=== PATIENT | female | born 1945 | race African-American/Black ===

== ENCOUNTER 2021-04-29 21:26 | Observation (INO) ==
[2021-04-29] MEDS ORDERED: ALUM/MAG/SIMETH/LIDO VISC 1:1 30 ML BOTTLE PO STA (23:07)
[2021-04-29] MEDS ORDERED: NITROGLYCERIN 2% OINT 1 INCH/GM PACK TOP STA (23:07)
[2021-04-29] MEDS ORDERED: ASPIRIN 325 MG TABLET PO STA (23:07)
[2021-04-29] MEDS ORDERED: ONDANSETRON 4 MG/2 ML VIAL IV STA (23:07)
[2021-04-29] MEDS ORDERED: MORPHINE 2 MG/1 ML SYRINGE IV STA (23:07)
[2021-04-29 23:18] LABS: Basophils # 0.1 10*3/uL (0.0-0.2); Basophils % 0.6 % (0.0-0.8); Eosinophils # 0.2 10*3/uL (0.0-0.87); Eosinophils % 2.7 % (0.00-10.9); Hematocrit 30.2 VOL% (35.7-47.0); Hemoglobin 9.7 GM/DL (12.0-16.0); Immature Granulocytes % 0.2 %; Immature Granulocytes Absolute 0.02 #; Lymphocytes # 1.2 10*3/uL (1.4-4.0); Lymphocytes % 15.2 % (21.3-54.2); Mean Corpuscular HGB Conc 32.1 GM/DL (32-36); Mean Corpuscular Volume 96.2 FL (87-102); Mean Platelet Volume 10.3 FL (9.6-12.0); Neutrophils % 70.3 % (38.7-73.9); Platelet Count 282 T/CUMM (130-400); Red Blood Count 3.14 MC/CUMM (3.8-5.5); Red Cell Distribution Width 15.1 % (9.3-17.3); White Blood Count 8.2 T/CUMM (4-12)
[2021-04-29 23:28] LABS: Albumin 3.2 G/DL (3.4-5.0); Bilirubin,Total 1.8 MG/DL (0.20-1.00); Calcium 9.6 MG/DL (8.5-10.1); Osmolality,Calculated 279.5 MOS/KG (273-304); Potassium 3.3 MMOL/L (3.5-5.1); Total Protein 7.9 G/DL (6.4-8.2)
[2021-04-29] MEDS ORDERED: POTASSIUM CHLORIDE 20 MEQ TABLET PO STA (23:51)
[2021-04-30] MEDS ORDERED: DEXTROSE 50% 25 GM/50 ML SYRINGE IV PRN (01:09)
[2021-04-30] MEDS ORDERED: GLUCAGON 1 MG VIAL IM PRN (01:09)
[2021-04-30] MEDS ORDERED: MORPHINE 2 MG/1 ML SYRINGE IV PRN (01:09)
[2021-04-30] MEDS ORDERED: ONDANSETRON 4 MG/2 ML VIAL IV PRN (01:09)
[2021-04-30] MEDS ORDERED: ENOXAPARIN 60 MG/0.6 ML SYRINGE ONE (02:59)
[2021-04-30] MEDS: ENOXAPARIN 40 MG/0.4 ML SYRINGE SUBCUT SCH (03:04)
[2021-04-30] MEDS ORDERED: PNEUMOCOCCAL VACCINE (13 VALENT) 0.5 ML SYRINGE IM ONE (04:09)
[2021-04-30 06:38] LABS: Basophils % 0.6 % (0.0-0.8); Eosinophils # 0.1 10*3/uL (0.0-0.87); Eosinophils % 1.2 % (0.00-10.9); Hemoglobin 8.6 GM/DL (12.0-16.0); Immature Granulocytes % 0.4 %; Immature Granulocytes Absolute 0.03 #; Lymphocytes % 13.7 % (21.3-54.2); Mean Corpuscular HGB Conc 31.9 GM/DL (32-36); Mean Corpuscular Volume 96.4 FL (87-102); Mean Platelet Volume 10.3 FL (9.6-12.0); Monocytes % 10.5 % (1.7-12.7); Neutrophils % 73.6 % (38.7-73.9); Platelet Count 258 T/CUMM (130-400); Red Cell Distribution Width 14.9 % (9.3-17.3); White Blood Count 7.2 T/CUMM (4-12)
[2021-04-30 06:57] LABS: Calcium 8.7 MG/DL (8.5-10.1); Osmolality,Calculated 276.7 MOS/KG (273-304); Potassium 3.4 MMOL/L (3.5-5.1); Risk Ratio 6.31
[2021-04-30] MEDS ORDERED: cycloSPORINE OPH EMUL 1 VIAL BOTH EYES SCH (08:00)
[2021-04-30] MEDS: PANTOPRAZOLE 40 MG TABLET PO SCH (08:37)
[2021-04-30] MEDS: PREGABALIN 100 MG CAPSULE PO SCH ×2 (08:37→20:50)
[2021-04-30] MEDS: hydroCHLOROthiazide 25 MG TABLET PO SCH (08:37)
[2021-04-30] MEDS: amLODIPine 5 MG TABLET PO SCH (08:37)
[2021-04-30] MEDS: DOCUSATE SODIUM 100 MG CAPSULE PO SCH ×2 (08:37→20:50)
[2021-04-30] MEDS: ENALAPRIL 10 MG TABLET PO SCH (08:47)
[2021-04-30] MEDS ORDERED: SIMVASTATIN 10 MG TABLET PO SCH (19:00)
[2021-05-01 01:16] LABS: Bilirubin,Urine Negative (Negative); Blood, Urine Negative (Negative); Glucose,Urine (UA) Negative (Negative); Ketones,Urine Negative (Negative); Mucus,Urine Occasional /LPF (Occasional); Nitrite,Urine Negative (Negative); Protein,Urine Negative; RBC,Urine 1 /HPF (0-4); Squamous Epithelial Cell,Urine Occasional /HPF (0-10); Urine Appearance CLEAR (Clear); Urine Color Yellow (Yellow); Urine Specific Gravity 1.013 (1.001-1.035)
[2021-05-01] MEDS: ENOXAPARIN 40 MG/0.4 ML SYRINGE SUBCUT SCH (08:30)
[2021-05-01] MEDS: PREGABALIN 100 MG CAPSULE PO SCH (08:31)
[2021-05-01] MEDS: hydroCHLOROthiazide 25 MG TABLET PO SCH (08:32)
[2021-05-01] MEDS: PANTOPRAZOLE 40 MG TABLET PO SCH (08:32)
[2021-05-01] MEDS: ENALAPRIL 10 MG TABLET PO SCH (08:32)
[2021-05-01] MEDS: DOCUSATE SODIUM 100 MG CAPSULE PO SCH (08:32)
[2021-05-01] MEDS: amLODIPine 5 MG TABLET PO SCH (08:32)
[2021-05-01 12:06] VITALS: BP 109/72
[2021-05-03] MEDS ORDERED: ERGOCALCIFEROL 50,000 UNIT CAPSULE PO SCH (09:00)
== END 2021-05-01 14:50 | disposition home or self-care (01) ==
LOC: N.EDINP 21:26 → N.ED 21:26 → N.EDINP 04-30 03:53 → N.2E 04-30 04:19
PROVIDERS: ADMIT Internal Medicine; ATTEND Internal Medicine

== ENCOUNTER 2021-05-26 22:46 | Inpatient (IN) ==
[2021-05-27 00:28] LABS: Bacteria,Urine Occasional /HPF (Few); Bilirubin,Urine Negative (Negative); Blood, Urine Small mg/dL (Negative); Glucose,Urine (UA) Negative (Negative); Ketones,Urine Negative (Negative); Mucus,Urine Occasional /LPF (Occasional); Nitrite,Urine Negative (Negative); Protein,Urine 100 MG/DL; RBC,Urine 2 /HPF (0-4); Squamous Epithelial Cell,Urine Occasional /HPF (0-10); Urine Appearance CLEAR (Clear); Urine Color Amber (Yellow); Urine Specific Gravity 1.018 (1.001-1.035)
[2021-05-27 00:38] LABS: Lactic Acid 1.1 MMOL/L (0.4-2.0)
[2021-05-27 00:40] LABS: Basophils # 0.1 10*3/uL (0.0-0.2); Basophils % 0.5 % (0.0-0.8); Eosinophils # 0.1 10*3/uL (0.0-0.87); Eosinophils % 0.5 % (0.00-10.9); Hematocrit 22.9 VOL% (35.7-47.0); Hemoglobin 7.6 GM/DL (12.0-16.0); Lymphocytes # 1.2 10*3/uL (1.4-4.0); Lymphocytes % 12.3 % (21.3-54.2); Mean Corpuscular HGB Conc 33.2 GM/DL (32-36); Mean Corpuscular Volume 93.5 FL (87-102); Mean Platelet Volume 10.2 FL (9.6-12.0); Monocytes % 11.7 % (1.7-12.7); Platelet Count 210 T/CUMM (130-400); Red Blood Count 2.45 MC/CUMM (3.8-5.5); Red Cell Distribution Width 15.2 % (9.3-17.3); White Blood Count 9.9 T/CUMM (4-12)
[2021-05-27 00:57] LABS: Albumin 1.7 G/DL (3.4-5.0); Osmolality,Calculated 282.5 MOS/KG (273-304); Potassium 3.5 MMOL/L (3.5-5.1); Total Protein 6.2 G/DL (6.4-8.2)
[2021-05-27] MEDS ORDERED: SODIUM CHLORIDE 0.9% 1,000 ML IV STA (01:10)
[2021-05-27] MEDS ORDERED: ASPIRIN EC 325 MG TABLET PO STA (01:10)
[2021-05-27] MEDS ORDERED: NITROGLYCERIN SL 0.4 MG TABLET SL STA (01:10)
[2021-05-27] MEDS ORDERED: PIPERACILLIN/TAZOBACTAM 3,375 MG in SODIUM CHLORIDE 0.9% 100 ML IV STA (01:12)
[2021-05-27] MEDS ORDERED: MORPHINE 2 MG/1 ML SYRINGE IV STA (01:57)
[2021-05-27] MEDS ORDERED: ONDANSETRON 4 MG/2 ML VIAL IV ONE (01:58)
[2021-05-27] MEDS ORDERED: GLUCAGON 1 MG VIAL IM PRN (03:13)
[2021-05-27] MEDS ORDERED: SODIUM CHLORIDE 0.9% 1,000 ML IV PRN ×2 (03:13→14:18)
[2021-05-27] MEDS ORDERED: ONDANSETRON 4 MG/2 ML VIAL IV PRN (03:20)
[2021-05-27] MEDS ORDERED: POTASSIUM CHLORIDE RIDER 10 MEQ/100 ML PREMIX IV PRN (03:20)
[2021-05-27] MEDS ORDERED: MAGNESIUM SULF RIDER 2 GM/50 ML PREMIX IV PRN (03:20)
[2021-05-27] MEDS ORDERED: MAGNESIUM SULF RIDER 4 GM/100 ML PREMIX IV PRN (03:20)
[2021-05-27] MEDS ORDERED: DEXTROSE 50% 25 GM/50 ML SYRINGE IV PRN (03:33)
[2021-05-27] MEDS: LACTATED RINGERS 1,000 ML IV SCH ×2 (05:18→12:48)
[2021-05-27 05:29] LABS: Basophils # 0.1 10*3/uL (0.0-0.2); Basophils % 0.5 % (0.0-0.8); Eosinophils # 0.1 10*3/uL (0.0-0.87); Eosinophils % 0.6 % (0.00-10.9); Hematocrit 22.1 VOL% (35.7-47.0); Hemoglobin 7.2 GM/DL (12.0-16.0); Immature Granulocytes % 1.2 %; Immature Granulocytes Absolute 0.12 #; Lymphocytes # 0.9 10*3/uL (1.4-4.0); Lymphocytes % 9.2 % (21.3-54.2); Mean Corpuscular HGB Conc 32.6 GM/DL (32-36); Mean Corpuscular Volume 93.6 FL (87-102); Mean Platelet Volume 10.5 FL (9.6-12.0); Monocytes % 10.8 % (1.7-12.7); Neutrophils % 77.7 % (38.7-73.9); Platelet Count 194 T/CUMM (130-400); Red Blood Count 2.36 MC/CUMM (3.8-5.5); Red Cell Distribution Width 15.1 % (9.3-17.3); White Blood Count 9.7 T/CUMM (4-12)
[2021-05-27 05:38] LABS: INR 1.1; PT Patient Result 12.5 SECS (10.5-12.0); Partial Thromboplastin Time 25.9 SECS (23.8-32.1)
[2021-05-27 06:04] LABS: Folate 6.56 NG/ML (5.38-24.0); Vitamin B12 1515 PG/ML (211-911)
[2021-05-27 06:47] LABS: % Iron Saturation 17.4 % (18-50); Ferritin 562.9 ng/mL (8-252); Thyroid Stimulating Hormone 1.68 uIU/ml (0.358-3.74)
[2021-05-27] MEDS ORDERED: PANTOPRAZOLE 40 MG TABLET PO SCH (09:00)
[2021-05-27 11:14] LABS: Sedimentation Rate-Westergren 126 MM/HR (0-30)
[2021-05-27] MEDS: DOCUSATE SODIUM 100 MG CAPSULE PO SCH ×2 (12:20→21:12)
[2021-05-27] MEDS: ACETAMINOPHEN 325 MG TABLET PO PRN ×2 (12:20→21:12)
[2021-05-27] MEDS: PIPERACILLIN/TAZOBACTAM 3,375 MG in SODIUM CHLORIDE 0.9% 100 ML IV SCH (12:45)
[2021-05-27] MEDS: PANTOPRAZOLE 40 MG TABLET PO SCH (21:12)
[2021-05-28] MEDS: ACETAMINOPHEN 325 MG TABLET PO PRN ×2 (01:06→12:27)
[2021-05-28] MEDS ORDERED: DEXTROSE 10% 250 ML BAG IV PRN (01:14)
[2021-05-28] MEDS: LACTATED RINGERS 1,000 ML IV SCH ×2 (01:51→06:17)
[2021-05-28] MEDS: PIPERACILLIN/TAZOBACTAM 3,375 MG in SODIUM CHLORIDE 0.9% 100 ML IV SCH ×2 (01:51→06:17)
[2021-05-28 05:35] LABS: Basophils % 0.4 % (0.0-0.8); Eosinophils # 0.2 10*3/uL (0.0-0.87); Eosinophils % 1.6 % (0.00-10.9); Hematocrit 29.1 VOL% (35.7-47.0); Hemoglobin 9.4 GM/DL (12.0-16.0); Immature Granulocytes % 0.8 %; Immature Granulocytes Absolute 0.08 #; Lymphocytes # 0.9 10*3/uL (1.4-4.0); Lymphocytes % 8.4 % (21.3-54.2); Mean Corpuscular HGB Conc 32.3 GM/DL (32-36); Mean Corpuscular Volume 92.1 FL (87-102); Mean Platelet Volume 10.5 FL (9.6-12.0); Monocytes % 8.4 % (1.7-12.7); Neutrophils % 80.4 % (38.7-73.9); Platelet Count 196 T/CUMM (130-400); Red Blood Count 3.16 MC/CUMM (3.8-5.5); Red Cell Distribution Width 15.5 % (9.3-17.3); White Blood Count 10.6 T/CUMM (4-12)
[2021-05-28 05:54] LABS: Calcium 8.4 MG/DL (8.5-10.1); Osmolality,Calculated 283.4 MOS/KG (273-304); Potassium 3.5 MMOL/L (3.5-5.1)
[2021-05-28] MEDS: PANTOPRAZOLE 40 MG TABLET PO SCH ×2 (09:06→20:49)
[2021-05-28] MEDS: POTASSIUM CHLORIDE 20 MEQ TABLET PO PRN ×2 (09:06→12:26)
[2021-05-28] MEDS: DOCUSATE SODIUM 100 MG CAPSULE PO SCH ×2 (09:06→20:49)
[2021-05-28 09:14] LABS: Hemoglobin A1 (Alkaline) 97.2 % (96.5-98.5); Hemoglobin A2 (Alkaline) 2.8 % (1.5-3.5)
[2021-05-28] MEDS: PREGABALIN 100 MG CAPSULE PO SCH (16:23)
[2021-05-28] MEDS: traMADol 50 MG TABLET PO PRN (16:23)
[2021-05-29] MEDS: traMADol 50 MG TABLET PO PRN ×2 (00:39→11:19)
[2021-05-29] MEDS: ACETAMINOPHEN 325 MG TABLET PO PRN (04:57)
[2021-05-29 06:05] LABS: Basophils % 0.4 % (0.0-0.8); Eosinophils # 0.2 10*3/uL (0.0-0.87); Eosinophils % 1.5 % (0.00-10.9); Immature Granulocytes % 0.6 %; Immature Granulocytes Absolute 0.07 #; Lymphocytes # 0.6 10*3/uL (1.4-4.0); Lymphocytes % 5.5 % (21.3-54.2); Mean Corpuscular HGB Conc 33.3 GM/DL (32-36); Mean Corpuscular Volume 91.7 FL (87-102); Mean Platelet Volume 10.3 FL (9.6-12.0); Monocytes % 7.3 % (1.7-12.7); Neutrophils % 84.7 % (38.7-73.9); Platelet Count 213 T/CUMM (130-400); Red Blood Count 3.27 MC/CUMM (3.8-5.5); Red Cell Distribution Width 15.8 % (9.3-17.3)
[2021-05-29 06:14] LABS: Calcium 8.2 MG/DL (8.5-10.1); Osmolality,Calculated 281.3 MOS/KG (273-304); Potassium 3.7 MMOL/L (3.5-5.1)
[2021-05-29] MEDS: PANTOPRAZOLE 40 MG TABLET PO SCH (09:02)
[2021-05-29] MEDS: PREGABALIN 100 MG CAPSULE PO SCH (09:02)
[2021-05-29] MEDS: DOCUSATE SODIUM 100 MG CAPSULE PO SCH (09:02)
[2021-05-29] MEDS ORDERED: HEPARIN LOCK FLUSH 500 UNIT/5 ML SYRINGE IV ONE (11:30)
[2021-05-29 12:26] VITALS: BP 131/95
== END 2021-05-29 13:29 | disposition home health service (06) | DRG 812 ==
LOC: EDBD → EDUNIT# → N.ED 22:46 → N.EDINP 05-27 03:15 → N.5E 05-27 23:48
PROVIDERS: ADMIT Internal Medicine; ATTEND Internal Medicine

== ENCOUNTER 2021-06-10 14:25 | Inpatient (IN) ==
[2021-06-10] MEDS ORDERED: HYDROmorphone 2 MG/1 ML VIAL IV STA (16:23)
[2021-06-10] MEDS ORDERED: ONDANSETRON 4 MG/2 ML VIAL IV STA (16:23)
[2021-06-10 16:44] LABS: Basophils % 0.3 % (0.0-0.8); Eosinophils % 0.2 % (0.00-10.9); Hematocrit 25.2 VOL% (35.7-47.0); Hemoglobin 8.3 GM/DL (12.0-16.0); Immature Granulocytes % 0.7 %; Immature Granulocytes Absolute 0.08 #; Lymphocytes # 0.7 10*3/uL (1.4-4.0); Lymphocytes % 6.5 % (21.3-54.2); Mean Corpuscular HGB Conc 32.9 GM/DL (32-36); Monocytes % 9.3 % (1.7-12.7); Platelet Count 136 T/CUMM (130-400); Red Blood Count 2.77 MC/CUMM (3.8-5.5); Red Cell Distribution Width 17.5 % (9.3-17.3); White Blood Count 10.7 T/CUMM (4-12)
[2021-06-10 16:52] LABS: INR 1.2; PT Patient Result 13.6 SECS (10.5-12.0); Partial Thromboplastin Time 32.2 SECS (23.8-32.1)
[2021-06-10 17:08] LABS: Albumin 1.6 G/DL (3.4-5.0); Bilirubin,Total 4.7 MG/DL (0.20-1.00); Calcium 7.9 MG/DL (8.5-10.1); Potassium 3.5 MMOL/L (3.5-5.1); Total Protein 5.6 G/DL (6.4-8.2)
[2021-06-10] MEDS ORDERED: ONDANSETRON 4 MG/2 ML VIAL IV PRN (18:50)
[2021-06-10] MEDS ORDERED: LACTULOSE 20 GM/30 ML UDCUP PO PRN (18:50)
[2021-06-10] MEDS ORDERED: GLUCAGON 1 MG VIAL IM PRN (18:50)
[2021-06-10] MEDS ORDERED: cycloSPORINE OPH EMUL 1 VIAL BOTH EYES SCH (19:00)
[2021-06-10] MEDS ORDERED: DEXTROSE 10% 250 ML BAG IV PRN (19:08)
[2021-06-10 20:02] LABS: % Iron Saturation 17.6 % (18-50)
[2021-06-10] MEDS: PIPERACILLIN/TAZOBACTAM 3,375 MG in SODIUM CHLORIDE 0.9% 100 ML IV SCH (20:39)
[2021-06-10 21:02] LABS: Folate 4.55 NG/ML (5.38-24.0); Vitamin B12 > 2000 PG/ML (211-911)
[2021-06-10] MEDS: DOCUSATE SODIUM 100 MG CAPSULE PO SCH (21:54)
[2021-06-10 23:10] LABS: Blood, Urine Large mg/dL (Negative); Glucose,Urine (UA) Negative (Negative); Ketones,Urine 5 mg/dL (Negative); Mucus,Urine Occasional /LPF (Occasional); Nitrite,Urine Negative (Negative); Protein,Urine 100 MG/DL; RBC,Urine 44 /HPF (0-4); Squamous Epithelial Cell,Urine Occasional /HPF (0-10); Urine Appearance CLOUDY (Clear); Urine Color Amber (Yellow); Urine Specific Gravity 1.017 (1.001-1.035)
[2021-06-10 23:12] LABS: Bilirubin,Urine Small mg/dL (Negative)
[2021-06-10 23:32] LABS: Barbiturates Screen,Urine Negative (Negative); Benzodiazepines Screen,Urine Negative (Negative); Cannabinoid Screen,Urine Negative (Negative); Opiate Screen,Urine Positive (Negative); Phencyclidine Screen,Urine Negative (Negative)
[2021-06-11] MEDS: DEXTROSE 5% NACL 0.45% 1,000 ML IV SCH ×2 (00:09→20:12)
[2021-06-11] MEDS: MORPHINE 2 MG/1 ML SYRINGE IV PRN ×2 (04:36→14:05)
[2021-06-11 04:38] LABS: Basophils % 0.3 % (0.0-0.8); Eosinophils % 0.2 % (0.00-10.9); Hematocrit 27.3 VOL% (35.7-47.0); Immature Granulocytes % 1.1 %; Immature Granulocytes Absolute 0.14 #; Lymphocytes # 1.1 10*3/uL (1.4-4.0); Lymphocytes % 8.6 % (21.3-54.2); Mean Corpuscular Volume 90.7 FL (87-102); Monocytes % 10.4 % (1.7-12.7); NRBC # 0.03 10*3/uL; Neutrophils % 79.4 % (38.7-73.9); Platelet Count 155 T/CUMM (130-400); Red Blood Count 3.01 MC/CUMM (3.8-5.5); Red Cell Distribution Width 17.8 % (9.3-17.3); White Blood Count 13.3 T/CUMM (4-12)
[2021-06-11 04:56] LABS: Alanine Aminotransferase 38 U/L (13-56); Albumin 1.8 G/DL (3.4-5.0); Alkaline Phosphatase 225 U/L (45-117); Aspartate Amino Transferase 130 U/L (0-37); Blood Urea Nitrogen 24 MG/DL (7-18); Calcium 8.6 MG/DL (8.5-10.1); Carbon Dioxide 22 MMOL/L (21-32); Estimated Glom Filtration Rate 49 ML/MIN; Glucose 127 MG/DL (74-106); HDL Cholesterol < 10 MG/DL (40-60); Osmolality,Calculated 275.1 MOS/KG (273-304); Potassium 3.4 MMOL/L (3.5-5.1); Sodium 135 MMOL/L (136-145); Total Protein 6.3 G/DL (6.4-8.2); Triglycerides 232 MG/DL (2-150); VLDL Cholesterol 46.4 MG/DL
[2021-06-11 05:01] LABS: Anisocytosis 1+; Band Neutrophils 3 % (0-10); Eosinophils 1 % (0-10); Hypochromia 1+; Lymphocytes 7 % (20-55); Metamyelocytes 1 %; Microcytosis 1+; Ovalocytes Slight; Segmented Neutrophils 81 % (50-85); Target Cells Slight; Total Cells Counted 100
[2021-06-11 05:02] LABS: Platelet Estimate Adequate
[2021-06-11] MEDS: OLANZapine 10 MG VIAL IM ONE ×2 (05:07→06:38)
[2021-06-11] MEDS: PIPERACILLIN/TAZOBACTAM 3,375 MG in SODIUM CHLORIDE 0.9% 100 ML IV SCH ×3 (05:07→22:26)
[2021-06-11] MEDS ORDERED: SODIUM CHLORIDE 0.9% 1,800 ML IV ONE (05:47)
[2021-06-11 06:36] LABS: ABG Base Excess 1.1 MMOL/L (-2.5-2.5); ABG HCO3 25.4 MMOL/L (20-26); ABG Oxygen Saturation 94.5 % (95-100); ABG PCO2 33.5 MM HG (35-48); ABG PH 7.473 (7.35-7.45); ABG PO2 72.5 MM HG (80-95); ABG TCO2 22.8 MMOL/L (23-27)
[2021-06-11] MEDS ORDERED: POTASSIUM CHLORIDE 20 MEQ TABLET PO ONE (08:29)
[2021-06-11] MEDS: LACTATED RINGERS 1,000 ML IV SCH ×2 (08:30→17:31)
[2021-06-11] MEDS ORDERED: VANCOMYCIN INJ 1,750 MG in SODIUM CHLORIDE 0.9% 500 ML IV ONE (09:00)
[2021-06-11] MEDS ORDERED: QUINAPRIL 10 MG PO SCH (09:00)
[2021-06-11] MEDS: hydroCHLOROthiazide 25 MG TABLET PO SCH (11:30)
[2021-06-11] MEDS: DOCUSATE SODIUM 100 MG CAPSULE PO SCH ×2 (11:30→22:25)
[2021-06-11] MEDS: PANTOPRAZOLE 40 MG VIAL IV SCH (11:30)
[2021-06-11] MEDS ORDERED: KETOROLAC 30 MG/1 ML VIAL ONE (11:48)
[2021-06-11] MEDS ORDERED: KETOROLAC 15 MG/1 ML VIAL IV ONE (12:05)
[2021-06-11] MEDS: PREGABALIN 50 MG CAPSULE PO SCH ×2 (14:15→22:25)
[2021-06-11] MEDS ORDERED: traMADol 50 MG TABLET PO PRN (14:41)
[2021-06-11] MEDS ORDERED: MORPHINE 2 MG/1 ML SYRINGE IV STA (14:57)
[2021-06-12] MEDS: PIPERACILLIN/TAZOBACTAM 3,375 MG in SODIUM CHLORIDE 0.9% 100 ML IV SCH (05:15)
[2021-06-12 05:28] LABS: Basophils % 0.3 % (0.0-0.8); Eosinophils # 0.1 10*3/uL (0.0-0.87); Hematocrit 28.5 VOL% (35.7-47.0); Hemoglobin 9.5 GM/DL (12.0-16.0); Immature Granulocytes % 1.2 %; Immature Granulocytes Absolute 0.11 #; Lymphocytes # 0.9 10*3/uL (1.4-4.0); Lymphocytes % 9.4 % (21.3-54.2); Mean Corpuscular HGB Conc 33.3 GM/DL (32-36); Mean Corpuscular Volume 89.9 FL (87-102); Mean Platelet Volume 11.4 FL (9.6-12.0); Monocytes % 11.7 % (1.7-12.7); NRBC # 0.02 10*3/uL; Neutrophils % 76.4 % (38.7-73.9); Platelet Count 109 T/CUMM (130-400); Red Blood Count 3.17 MC/CUMM (3.8-5.5); Red Cell Distribution Width 17.8 % (9.3-17.3); White Blood Count 9.3 T/CUMM (4-12)
[2021-06-12 05:46] LABS: Band Neutrophils 1 % (0-10); Hypochromia 1+; Lymphocytes 13 % (20-55); Segmented Neutrophils 81 % (50-85); Target Cells Slight; Total Cells Counted 100
[2021-06-12 05:47] LABS: Microcytosis 1+; Ovalocytes Slight; Platelet Estimate Adequate
[2021-06-12 05:56] LABS: Albumin 1.3 G/DL (3.4-5.0); Bilirubin,Total 3.8 MG/DL (0.20-1.00); Calcium 7.8 MG/DL (8.5-10.1); Osmolality,Calculated 277.7 MOS/KG (273-304); Total Protein 5.4 G/DL (6.4-8.2)
[2021-06-12] MEDS: LACTATED RINGERS 1,000 ML IV SCH ×2 (08:43→15:26)
[2021-06-12] MEDS: DOCUSATE SODIUM 100 MG CAPSULE PO SCH ×2 (09:24→23:46)
[2021-06-12] MEDS: hydroCHLOROthiazide 25 MG TABLET PO SCH (09:24)
[2021-06-12] MEDS: PREGABALIN 50 MG CAPSULE PO SCH (09:25)
[2021-06-12] MEDS: PANTOPRAZOLE 40 MG VIAL IV SCH (09:29)
[2021-06-12] MEDS: MORPHINE 2 MG/1 ML SYRINGE IV PRN (11:31)
[2021-06-12] MEDS: cefTRIAXone 1,000 MG in SODIUM CHLORIDE 0.9% 100 ML IV SCH (13:24)
[2021-06-12] MEDS: MORPHINE ER 15 MG TABLET PO SCH (15:38)
[2021-06-12] MEDS: DEXTROSE 5% NACL 0.45% 1,000 ML IV SCH (15:53)
[2021-06-12] MEDS: HYDROCORTISONE 100 MG VIAL IV SCH (16:49)
[2021-06-12] MEDS: SODIUM BICARB INJ 100 MEQ in DEXTROSE 5% 1,000 ML IV SCH (17:50)
[2021-06-12] MEDS: PREGABALIN 100 MG CAPSULE PO SCH (23:46)
[2021-06-12] MEDS: cycloSPORINE OPH EMUL 1 VIAL BOTH EYES SCH (23:46)
[2021-06-13] MEDS: HYDROCORTISONE 100 MG VIAL IV SCH (02:53)
[2021-06-13] MEDS: MORPHINE ER 15 MG TABLET PO SCH ×2 (02:53→16:16)
[2021-06-13] MEDS: DOCUSATE SODIUM 100 MG CAPSULE PO SCH ×4 (02:56→20:47)
[2021-06-13 05:13] LABS: Basophils % 0.3 % (0.0-0.8); Hematocrit 28.4 VOL% (35.7-47.0); Hemoglobin 9.4 GM/DL (12.0-16.0); Immature Granulocytes % 1.6 %; Immature Granulocytes Absolute 0.11 #; Lymphocytes # 0.5 10*3/uL (1.4-4.0); Lymphocytes % 6.7 % (21.3-54.2); Mean Corpuscular HGB Conc 33.1 GM/DL (32-36); Mean Corpuscular Volume 90.4 FL (87-102); Mean Platelet Volume 10.8 FL (9.6-12.0); Monocytes % 7.7 % (1.7-12.7); NRBC # 0.04 10*3/uL; Neutrophils % 83.7 % (38.7-73.9); Platelet Count 115 T/CUMM (130-400); Red Blood Count 3.14 MC/CUMM (3.8-5.5); Red Cell Distribution Width 18.2 % (9.3-17.3); White Blood Count 6.8 T/CUMM (4-12)
[2021-06-13 05:38] LABS: Calcium 8.4 MG/DL (8.5-10.1); Osmolality,Calculated 280.8 MOS/KG (273-304); Potassium 3.5 MMOL/L (3.5-5.1)
[2021-06-13 05:41] LABS: Hypochromia 1+; Lymphocytes 5 % (20-55); Microcytosis 1+; Segmented Neutrophils 84 % (50-85); Total Cells Counted 100
[2021-06-13] MEDS ORDERED: HALOPERIDOL 5 MG/ML AMP IM ONE (08:19)
[2021-06-13 08:43] LABS: Albumin 1.6 G/DL (3.4-5.0); Bilirubin,Direct 2.66 MG/DL (0.0-0.20); Bilirubin,Indirect 0.7 MG/DL (0.0-1.0); Bilirubin,Total 3.4 MG/DL (0.20-1.00); Total Protein 6.1 G/DL (6.4-8.2)
[2021-06-13] MEDS ORDERED: predniSONE 10 MG TABLET PO SCH (09:00)
[2021-06-13] MEDS: PANTOPRAZOLE 40 MG VIAL IV SCH (09:13)
[2021-06-13] MEDS: SODIUM BICARB INJ 100 MEQ in DEXTROSE 5% 1,000 ML IV SCH ×3 (09:40→16:16)
[2021-06-13] MEDS: cycloSPORINE OPH EMUL 1 VIAL BOTH EYES SCH ×2 (10:03→20:47)
[2021-06-13] MEDS: CYANOCOBALAMIN 500 MCG TABLET PO SCH (10:09)
[2021-06-13] MEDS: LACTULOSE 20 GM/30 ML UDCUP PO SCH (10:09)
[2021-06-13] MEDS: PREGABALIN 100 MG CAPSULE PO SCH ×2 (10:09→20:47)
[2021-06-13] MEDS: cefTRIAXone 1,000 MG in SODIUM CHLORIDE 0.9% 100 ML IV SCH (12:17)
[2021-06-13] MEDS ORDERED: HYDROCORTISONE 100 MG VIAL IV SCH (15:00)
[2021-06-14] MEDS: MORPHINE ER 15 MG TABLET PO SCH ×2 (03:21→14:51)
[2021-06-14 04:42] LABS: Basophils % 0.1 % (0.0-0.8); Hematocrit 25.8 VOL% (35.7-47.0); Hemoglobin 8.5 GM/DL (12.0-16.0); Immature Granulocytes % 0.9 %; Immature Granulocytes Absolute 0.06 #; Lymphocytes # 0.8 10*3/uL (1.4-4.0); Lymphocytes % 10.9 % (21.3-54.2); Mean Corpuscular HGB Conc 32.9 GM/DL (32-36); Mean Corpuscular Volume 90.5 FL (87-102); Mean Platelet Volume 11.5 FL (9.6-12.0); Monocytes % 10.5 % (1.7-12.7); NRBC # 0.07 10*3/uL; Neutrophils % 77.6 % (38.7-73.9); Platelet Count 109 T/CUMM (130-400); Red Blood Count 2.85 MC/CUMM (3.8-5.5); Red Cell Distribution Width 17.7 % (9.3-17.3)
[2021-06-14 05:05] LABS: Calcium 7.9 MG/DL (8.5-10.1); Osmolality,Calculated 280.8 MOS/KG (273-304); Potassium 3.5 MMOL/L (3.5-5.1)
[2021-06-14 05:11] LABS: Albumin 1.5 G/DL (3.4-5.0); Bilirubin,Direct 2.1 MG/DL (0.0-0.20); Bilirubin,Indirect 1.6 MG/DL (0.0-1.0); Bilirubin,Total 3.7 MG/DL (0.20-1.00); Total Protein 5.7 G/DL (6.4-8.2)
[2021-06-14] MEDS: SODIUM BICARB INJ 100 MEQ in DEXTROSE 5% 1,000 ML IV SCH ×3 (08:16→23:52)
[2021-06-14] MEDS: predniSONE 20 MG TABLET PO SCH (09:31)
[2021-06-14] MEDS: PANTOPRAZOLE 40 MG TABLET PO SCH (09:31)
[2021-06-14] MEDS: PREGABALIN 100 MG CAPSULE PO SCH ×2 (09:31→20:24)
[2021-06-14] MEDS: CYANOCOBALAMIN 500 MCG TABLET PO SCH (09:32)
[2021-06-14] MEDS: DOCUSATE SODIUM 100 MG CAPSULE PO SCH ×2 (09:32→20:24)
[2021-06-14] MEDS: LACTULOSE 20 GM/30 ML UDCUP PO SCH (09:33)
[2021-06-14] MEDS: cycloSPORINE OPH EMUL 1 VIAL BOTH EYES SCH ×2 (09:34→20:24)
[2021-06-14] MEDS: cefTRIAXone 1,000 MG in SODIUM CHLORIDE 0.9% 100 ML IV SCH (14:52)
[2021-06-15] MEDS: MORPHINE ER 15 MG TABLET PO SCH ×2 (02:29→16:37)
[2021-06-15 06:16] LABS: Albumin 1.8 G/DL (3.4-5.0); Calcium 8.3 MG/DL (8.5-10.1); Osmolality,Calculated 277.1 MOS/KG (273-304); Potassium 3.9 MMOL/L (3.5-5.1); Total Protein 6.6 G/DL (6.4-8.2)
[2021-06-15] MEDS: predniSONE 20 MG TABLET PO SCH (09:02)
[2021-06-15] MEDS: CYANOCOBALAMIN 500 MCG TABLET PO SCH (09:02)
[2021-06-15] MEDS: LACTULOSE 20 GM/30 ML UDCUP PO SCH (09:03)
[2021-06-15] MEDS: PREGABALIN 100 MG CAPSULE PO SCH ×2 (09:03→21:00)
[2021-06-15] MEDS: DOCUSATE SODIUM 100 MG CAPSULE PO SCH ×2 (09:03→21:00)
[2021-06-15] MEDS: PANTOPRAZOLE 40 MG TABLET PO SCH (09:03)
[2021-06-15] MEDS: cycloSPORINE OPH EMUL 1 VIAL BOTH EYES SCH ×2 (11:06→21:00)
[2021-06-15] MEDS: cefTRIAXone 1,000 MG in SODIUM CHLORIDE 0.9% 100 ML IV SCH (11:45)
[2021-06-15] MEDS: SODIUM BICARB INJ 100 MEQ in DEXTROSE 5% 1,000 ML IV SCH (19:20)
[2021-06-15] MEDS: PROMETHAZINE 25 MG TABLET PO PRN (20:59)
[2021-06-16] MEDS: MORPHINE ER 15 MG TABLET PO SCH ×2 (03:41→14:27)
[2021-06-16] MEDS: DOCUSATE SODIUM 100 MG CAPSULE PO SCH ×2 (09:29→21:19)
[2021-06-16] MEDS: CYANOCOBALAMIN 500 MCG TABLET PO SCH (09:29)
[2021-06-16] MEDS: cycloSPORINE OPH EMUL 1 VIAL BOTH EYES SCH ×2 (09:29→21:24)
[2021-06-16] MEDS: LACTULOSE 20 GM/30 ML UDCUP PO SCH (09:29)
[2021-06-16] MEDS: PANTOPRAZOLE 40 MG TABLET PO SCH (09:29)
[2021-06-16] MEDS: predniSONE 20 MG TABLET PO SCH (09:29)
[2021-06-16] MEDS: PREGABALIN 100 MG CAPSULE PO SCH ×2 (09:29→21:19)
[2021-06-16] MEDS: cefTRIAXone 1,000 MG in SODIUM CHLORIDE 0.9% 100 ML IV SCH (13:59)
[2021-06-16] MEDS: SODIUM BICARB INJ 100 MEQ in DEXTROSE 5% 1,000 ML IV SCH (14:27)
[2021-06-16] MEDS: PROMETHAZINE 25 MG TABLET PO PRN (21:19)
[2021-06-17] MEDS: SODIUM BICARB INJ 100 MEQ in DEXTROSE 5% 1,000 ML IV SCH ×2 (04:18→13:26)
[2021-06-17] MEDS: MORPHINE ER 15 MG TABLET PO SCH ×2 (04:18→14:31)
[2021-06-17 05:53] LABS: Basophils % 0.1 % (0.0-0.8); Eosinophils % 0.1 % (0.00-10.9); Hematocrit 27.8 VOL% (35.7-47.0); Hemoglobin 9.2 GM/DL (12.0-16.0); Immature Granulocytes % 0.8 %; Immature Granulocytes Absolute 0.11 #; Lymphocytes # 1.1 10*3/uL (1.4-4.0); Lymphocytes % 7.8 % (21.3-54.2); Mean Corpuscular HGB Conc 33.1 GM/DL (32-36); Mean Corpuscular Volume 90.3 FL (87-102); Mean Platelet Volume 11.5 FL (9.6-12.0); Monocytes % 7.1 % (1.7-12.7); NRBC # 0.02 10*3/uL; Neutrophils % 84.1 % (38.7-73.9); Platelet Count 103 T/CUMM (130-400); Red Blood Count 3.08 MC/CUMM (3.8-5.5); Red Cell Distribution Width 19.3 % (9.3-17.3); White Blood Count 13.5 T/CUMM (4-12)
[2021-06-17 06:12] LABS: Calcium 7.9 MG/DL (8.5-10.1); Osmolality,Calculated 272.2 MOS/KG (273-304); Potassium 3.1 MMOL/L (3.5-5.1)
[2021-06-17] MEDS: CYANOCOBALAMIN 500 MCG TABLET PO SCH (09:30)
[2021-06-17] MEDS: predniSONE 20 MG TABLET PO SCH (09:30)
[2021-06-17] MEDS: PREGABALIN 100 MG CAPSULE PO SCH ×2 (09:30→21:05)
[2021-06-17] MEDS: LACTULOSE 20 GM/30 ML UDCUP PO SCH (09:31)
[2021-06-17] MEDS: PANTOPRAZOLE 40 MG TABLET PO SCH (09:31)
[2021-06-17] MEDS: cycloSPORINE OPH EMUL 1 VIAL BOTH EYES SCH ×2 (09:31→21:05)
[2021-06-17] MEDS: DOCUSATE SODIUM 100 MG CAPSULE PO SCH ×2 (09:31→21:05)
[2021-06-17] MEDS ORDERED: MAGNESIUM SULF RIDER 2 GM/50 ML PREMIX IV ONE (14:05)
[2021-06-17] MEDS ORDERED: POTASSIUM CHLORIDE RIDER 10 MEQ/100 ML PREMIX IV SCH (14:30)
[2021-06-17] MEDS: POTASSIUM CHLORIDE RIDER 10 MEQ/100 ML PREMIX IV SCH ×2 (21:05→22:45)
[2021-06-18] MEDS: POTASSIUM CHLORIDE RIDER 10 MEQ/100 ML PREMIX IV SCH ×2 (00:40→02:54)
[2021-06-18] MEDS: MORPHINE ER 15 MG TABLET PO SCH ×2 (02:54→14:53)
[2021-06-18 05:22] LABS: Basophils % 0.1 % (0.0-0.8); Hematocrit 30.2 VOL% (35.7-47.0); Hemoglobin 9.8 GM/DL (12.0-16.0); Immature Granulocytes % 0.8 %; Immature Granulocytes Absolute 0.11 #; Lymphocytes # 1.1 10*3/uL (1.4-4.0); Lymphocytes % 8.4 % (21.3-54.2); Mean Corpuscular HGB Conc 32.5 GM/DL (32-36); Mean Corpuscular Volume 92.1 FL (87-102); Mean Platelet Volume 11.4 FL (9.6-12.0); Monocytes % 7.6 % (1.7-12.7); Neutrophils % 83.1 % (38.7-73.9); Red Blood Count 3.28 MC/CUMM (3.8-5.5); White Blood Count 13.6 T/CUMM (4-12)
[2021-06-18 05:27] LABS: Platelet Count 96 T/CUMM (130-400)
[2021-06-18 05:40] LABS: Hypochromia 1+; Microcytosis 1+; Target Cells Few
[2021-06-18 05:41] LABS: Anisocytosis 1+; Polychromasia Slight
[2021-06-18 06:14] LABS: Calcium 8.2 MG/DL (8.5-10.1); Osmolality,Calculated 269.2 MOS/KG (273-304); Potassium 4.1 MMOL/L (3.5-5.1)
[2021-06-18] MEDS: PREGABALIN 100 MG CAPSULE PO SCH ×2 (10:03→21:59)
[2021-06-18] MEDS: PANTOPRAZOLE 40 MG TABLET PO SCH (10:03)
[2021-06-18] MEDS: CYANOCOBALAMIN 500 MCG TABLET PO SCH (10:03)
[2021-06-18] MEDS: DOCUSATE SODIUM 100 MG CAPSULE PO SCH ×2 (10:03→21:59)
[2021-06-18] MEDS: LACTULOSE 20 GM/30 ML UDCUP PO SCH (10:04)
[2021-06-18] MEDS: predniSONE 20 MG TABLET PO SCH (10:04)
[2021-06-18] MEDS: cycloSPORINE OPH EMUL 1 VIAL BOTH EYES SCH ×2 (10:04→23:27)
[2021-06-19] MEDS: MORPHINE ER 15 MG TABLET PO SCH ×2 (03:04→14:44)
[2021-06-19 03:35] LABS: Basophils % 0.1 % (0.0-0.8); Eosinophils % 0.1 % (0.00-10.9); Hemoglobin 10.3 GM/DL (12.0-16.0); Immature Granulocytes % 0.8 %; Immature Granulocytes Absolute 0.11 #; Lymphocytes # 1.1 10*3/uL (1.4-4.0); Mean Corpuscular HGB Conc 32.2 GM/DL (32-36); Mean Corpuscular Volume 91.7 FL (87-102); Mean Platelet Volume 10.8 FL (9.6-12.0); Monocytes % 8.2 % (1.7-12.7); NRBC # 0.03 10*3/uL; Neutrophils % 82.8 % (38.7-73.9); Platelet Count 97 T/CUMM (130-400); Red Blood Count 3.49 MC/CUMM (3.8-5.5); White Blood Count 13.8 T/CUMM (4-12)
[2021-06-19 03:55] LABS: Hypochromia 1+; Target Cells Few
[2021-06-19 03:56] LABS: Microcytosis 1+
[2021-06-19 03:57] LABS: Platelet Estimate Decreased
[2021-06-19 04:02] LABS: Calcium 8.1 MG/DL (8.5-10.1); Osmolality,Calculated 278.7 MOS/KG (273-304); Potassium 3.8 MMOL/L (3.5-5.1)
[2021-06-19 04:32] LABS: Albumin 1.5 G/DL (3.4-5.0); Bilirubin,Direct 2.62 MG/DL (0.0-0.20); Bilirubin,Total 3.6 MG/DL (0.20-1.00); Total Protein 5.8 G/DL (6.4-8.2)
[2021-06-19] MEDS ORDERED: ERGOCALCIFEROL 50,000 UNIT CAPSULE PO SCH (09:00)
[2021-06-19] MEDS: PANTOPRAZOLE 40 MG TABLET PO SCH (09:43)
[2021-06-19] MEDS: predniSONE 10 MG TABLET PO SCH (09:43)
[2021-06-19] MEDS: cycloSPORINE OPH EMUL 1 VIAL BOTH EYES SCH ×2 (09:44→20:42)
[2021-06-19] MEDS: DOCUSATE SODIUM 100 MG CAPSULE PO SCH ×2 (09:44→20:42)
[2021-06-19] MEDS: CYANOCOBALAMIN 500 MCG TABLET PO SCH (09:44)
[2021-06-19] MEDS: PREGABALIN 100 MG CAPSULE PO SCH ×2 (09:44→20:42)
[2021-06-19] MEDS: LACTULOSE 20 GM/30 ML UDCUP PO SCH (09:45)
[2021-06-20] MEDS: PREGABALIN 100 MG CAPSULE PO SCH (09:23)
[2021-06-20] MEDS: cycloSPORINE OPH EMUL 1 VIAL BOTH EYES SCH (09:23)
[2021-06-20] MEDS: DOCUSATE SODIUM 100 MG CAPSULE PO SCH (09:23)
[2021-06-20] MEDS: predniSONE 10 MG TABLET PO SCH (09:23)
[2021-06-20] MEDS: CYANOCOBALAMIN 500 MCG TABLET PO SCH (09:23)
[2021-06-20] MEDS: PANTOPRAZOLE 40 MG TABLET PO SCH (09:23)
[2021-06-20] MEDS: LACTULOSE 20 GM/30 ML UDCUP PO SCH (09:23)
[2021-06-20 12:01] VITALS: BP 114/82
== END 2021-06-20 13:16 | disposition hospice, home (50) | DRG 435 ==
LOC: EDBD → EDUNIT# → N.EDINP 14:25 → N.ED 14:25 → N.TELEN 06-11 15:20 → SUATTDRO 06-12 14:23
PROVIDERS: ADMIT Internal Medicine; ATTEND Internal Medicine